=== PATIENT | male | born 1955 | race Two or more races ===

== ENCOUNTER → 2018-03-22 | Outpatient (CLI) | payer OTHER | END | disposition home or self-care (01) | LOC: RAD 09:53 | PROVIDERS: ATTEND Internal Medicine Hematology & Oncology | DX: C64.2 Malignant neoplasm of left kidney, except renal pelvis (principal) | CPT/HCPCS: 93005 ==

== ENCOUNTER 2018-12-30 20:20 | Observation (INO) | payer OTHER ==
[~2018-12-30] VITALS: Ht 175.3 cm; Wt 92.4 kg
--- NOTE | 2018-12-30 20:45 | NUR ---
THIS IS A 63 YO MALE WHO PRESENTS TO THE ER C/O CP X 20 MINUTES WHILE WALKING DESCRIBED "SQUEEZING/PRESSURE" AND RATED AT 3/10. PT CURRENTLY DENIES ANY PAIN. PT HAS HX OF STAGE 4 LUNG CA AND IS CURRENTLY UNDERGOING IMMUNOTHERAPY. PT AO X 4. SKIN PWD. RESP EVEN AND UNLABORED. PT NSR 60'S ON RIM BUSTER. PT ON CONT BP, CARDIAC AND O2 MONITORS. FAMILY AT BEDSIDE. CALL LIGHT WITHIN REACH. WILL CONT TO MONITOR PT.
[2018-12-30] MEDS ORDERED: ASPIRIN 81 MG TABLET CHEW PO ONE (21:00)
[2018-12-30] MEDS ORDERED: ASPIRIN 81 MG TABLET CHEW ONE (21:11)
[2018-12-30 21:15] LABS: BASOPHILS # (AUTO) 0.05 x10^3/uL (0-0.1); BASOPHILS % (AUTO) 1 % (0-1); EOSINOPHILS # (AUTO) 0.11 x10^3/uL (0-0.4); EOSINOPHILS % (AUTO) 1 % (1-7); LYMPHOCYTES # (AUTO) 2.91 x10^3/uL (1-3.4); LYMPHOCYTES % (AUTO) 35 % (22-44); MD NO; MEAN CORPUSCULAR HEMOGLOBIN 32.8 pg (27.5-34.5); MEAN CORPUSCULAR HGB CONC 33.9 g/dL (33.2-36.2); MEAN CORPUSCULAR VOLUME 96.6 fL (81-97); MEAN PLATELET VOLUME 7.7 fL (7.4-10.4); MONOCYTES # (AUTO) 0.59 x10^3/uL (0.2-0.8); MONOCYTES % (AUTO) 7 % (2-9); NEUTROPHILS # (AUTO) 4.64 x10^3/uL (1.8-6.8); NEUTROPHILS % (AUTO) 56 % (42-75); PLATELET COUNT 227 x10^3/uL (130-400); RED BLOOD COUNT 4.68 x10^6/uL (4.38-5.82)
[2018-12-30 21:19] LABS: ALANINE AMINOTRANSFERASE 32 U/L (12-78); ALBUMIN 3.7 g/dL (3.4-5.0); ANION GAP 10 mmol/L (5-15); CALCIUM 8.7 mg/dL (8.5-10.1); CHLORIDE 104 mmol/L (98-107); CREATININE 1.31 mg/dL (0.7-1.3)
[2018-12-30 21:23] LABS: ALKALINE PHOSPHATASE 83 U/L (45-117); BILIRUBIN,TOTAL 0.4 mg/dL (0.2-1.0); TOTAL PROTEIN 8.2 g/dL (6.4-8.2); TROPONIN I < 0.015 ng/mL (0.000-0.045)
[2018-12-30 21:25] LABS: INTERNATIONAL NORMALIZED RATIO 0.94 (0.93-1.1); PROTHROMBIN TIME 9.9 Seconds (9.6-11.5)
--- NOTE | 2018-12-30 21:42 | NUR ---
PT CURRENTLY RESTING ON GURNEY. NAD NOTED. SKIN PWD. RESP EVEN AND UNLABORED. PT CURRENTLY DENIES PAIN. 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 FAMILY AT BEDSIDE. CALL LIGHT WITHIN REACH. WILL CONT TO MONITOR PT.
--- NOTE | 2018-12-30 21:54 | NUR ---
REPORT TO ISAÍAS MILNER WHO ASSUMED CARE OF PT.
--- NOTE | 2018-12-30 21:55 | NUR ---
REPORT FROM SHANNAN METZ. PT RESTING WITH NO NEEDS AT THIS TIME. CALL LIGHT IN REACH
--- NOTE | 2018-12-30 22:30 | NUR ---
PT TO BE ADMITTED. VSS. MED REC COMPLETE. FAMILY AT BEDSIDE
[2018-12-30] MEDS ORDERED: LEVO50TA5 PO (23:08)
[2018-12-30] MEDS ORDERED: LISI-170 PO (23:08)
[2018-12-30] MEDS ORDERED: CHOL100011 PO (23:08)
[2018-12-30] MEDS ORDERED: CYAN500T2 PO (23:08)
[2018-12-30] MEDS ORDERED: IMMUNO THERAPY IV (23:08)
[2018-12-30] MEDS ORDERED: LACT1CAP43 PO (23:08)
[2018-12-30] MEDS ORDERED: ACETAMINOPHEN 325 MG TABLET PO PRN (23:30)
[2018-12-30] MEDS ORDERED: BISACODYL 10 MG SUPP PR PRN (23:30)
[2018-12-30] MEDS ORDERED: NITROGLYCERIN 0.4 MG BOTTLE (25 TABS) SL PRN (23:30)
[2018-12-30] MEDS ORDERED: morphine SULFATE 10 MG/ML, 1ML IVPush PRN (23:30)
[2018-12-30] MEDS ORDERED: POLYETHYLENE GLYCOL 17 GM PACKET PO PRN (23:30)
[2018-12-30] MEDS ORDERED: ONDANSETRON ODT 4 MG PO PRN (23:30)
[2018-12-31 00:02] VITALS: BP 119/73
[2018-12-31 00:03] LABS: HEMOGLOBIN A1C 6.8 % (4.2-6.3)
[2018-12-31] MEDS: SODIUM CHLORIDE FLUSH 10ML SYR IVF SCH ×2 (00:49→07:30)
[2018-12-31 01:50] VITALS: BP 118/62
[2018-12-31 03:55] LABS: TROPONIN I < 0.015 ng/mL (0.000-0.045)
[2018-12-31] MEDS ORDERED: NIVO240V IV (03:59)
[2018-12-31] MEDS ORDERED: ASPIRIN 81 MG TABLET EC PO SCH (06:00)
[2018-12-31 07:07] VITALS: BP 115/76
[2018-12-31] MEDS ORDERED: LACTOBACILLUS CHEW TABLET PO SCH (09:00)
[2018-12-31] MEDS ORDERED: SENNA/DOCUSATE TABLET PO SCH (09:00)
[2018-12-31] MEDS ORDERED: CHOLECALCIFEROL 1,000 UNIT TABLET PO SCH (09:00)
[2018-12-31] MEDS ORDERED: LISINOPRIL 20 MG TABLET PO SCH (09:00)
[2018-12-31] MEDS ORDERED: LEVOTHYROXINE 50 MCG TABLET PO SCH (09:00)
[2018-12-31] MEDS ORDERED: CYANOCOBALAMIN 1,000 MCG TABLET PO SCH (09:00)
[2018-12-31 11:51] LABS: TROPONIN I < 0.015 ng/mL (0.000-0.045)
[2018-12-31] MEDS ORDERED: METF500T17 PO (13:42)
== END 2018-12-31 15:10 | disposition home or self-care (01) ==
LOC: ED 22:41 → INTOOBSV 23:02 → 5SO 23:02 → DCLOUNGE 12-31 14:59
PROVIDERS: ADMIT Internal Medicine; ATTEND Internal Medicine
DX: R07.89 Other chest pain (principal); E78.5 Hyperlipidemia, unspecified; I10 Essential (primary) hypertension; E03.9 Hypothyroidism, unspecified; E11.9 Type 2 diabetes mellitus without complications; Z85.528 Personal history of other malignant neoplasm of kidney; Z79.899 Other long term (current) drug therapy
CPT/HCPCS: 36415; 71045; 80053; 83036; 84484; 85025; 85379; 85610; 85730; 93005; 93017; 93306; 99285; G0378

== ENCOUNTER 2020-09-02 19:37 | Emergency (ER) | payer MEDICARE ==
[~2020-09-02] VITALS: Ht 175.3 cm; Wt 96.0 kg
[~2020-09-02 19:37] MED LIST: CHOL100011 PO; CYAN500T7 PO; GLIM4TAB8 PO; IMMUNO THERAPY IV; LACT1CAP43 PO; LEVO50TA5 PO; LISI-170 PO; METF500T17 PO; NIVO240V IV; TURM1POW PO
[2020-09-02] MEDS ORDERED: ASPIRIN 81 MG TABLET CHEW ONE (20:50)
--- NOTE | 2020-09-02 20:55 | NUR ---
pt in bed with at bedside no signs or symptoms of acute distress noted respirations even and unlabored, pt satting well on room air. pt on equipment monitor phototypesetting, tech at bedside to do ekg. pt denies pain or discomfort at this time, bed rails up bilaterally and call light in hand.
[2020-09-02] MEDS ORDERED: ASPIRIN 81 MG TABLET CHEW PO ONE (21:00)
[2020-09-02 21:08] LABS: BASOPHILS % (AUTO) 0 % (0-1); EOSINOPHILS % (AUTO) 1 % (1-7); LYMPHOCYTES % (AUTO) 19 % (22-44); MEAN CORPUSCULAR HEMOGLOBIN 31.7 pg (27.5-34.5); MEAN CORPUSCULAR HGB CONC 33.9 g/dL (33.2-36.2); MEAN PLATELET VOLUME 7.8 fL (7.4-10.4); MONOCYTES % (AUTO) 7 % (2-9); NEUTROPHILS % (AUTO) 74 % (42-75); PLATELET COUNT 206 x10^3/uL (130-400); RED BLOOD COUNT 4.76 x10^6/uL (4.38-5.82); RED CELL DISTRIBUTION WIDTH 14.6 % (9.4-14.8)
[2020-09-02 21:09] LABS: MD NO
[2020-09-02 21:15] LABS: ALANINE AMINOTRANSFERASE 74 U/L (12-78); ALBUMIN 3.8 g/dL (3.4-5.0); ANION GAP 8 mmol/L (5-15); CALCIUM 8.8 mg/dL (8.5-10.1); CHLORIDE 103 mmol/L (98-107)
[2020-09-02 21:20] LABS: ALKALINE PHOSPHATASE 67 U/L (45-117); BILIRUBIN,TOTAL 0.6 mg/dL (0.2-1.0); TOTAL PROTEIN 7.9 g/dL (6.4-8.2); TROPONIN I < 0.015 ng/mL (0.000-0.045)
[2020-09-02] MEDS ORDERED: ASPIRIN 325 MG TABLET ONE (22:43)
[2020-09-02 22:47] VITALS: BP 117/58
== END 2020-09-02 22:53 | disposition home or self-care (01) ==
LOC: ED 22:40
DX: R07.89 Other chest pain (principal); M54.2 Cervicalgia; M25.512 Pain in left shoulder; R94.31 Abnormal electrocardiogram [ECG] [EKG]; E11.9 Type 2 diabetes mellitus without complications; E78.00 Pure hypercholesterolemia, unspecified; Z85.528 Personal history of other malignant neoplasm of kidney
CPT/HCPCS: 36415; 71045; 80053; 84484; 85025; 93005; 99285